=== PATIENT | female | born 1955 | race Two or more races ===

== ENCOUNTER → 2023-05-24 | Day surgery (SDC) | payer BC, MEDICARE ==
[~2023-05-24] MED LIST: LACTATED RINGERS 1,000 ML IV ONE; LACTATED RINGERS 1,000 ML IV SCH; LIDOCAINE 1% (10MG/ML) FOR IV START INTRADERMA PRN; PROPOFOL 10 MG/ML 20 ML VIAL IV ONE
[2023-05-24 08:15] LABS: Glucose,Whole Blood 79 mg/dL (70-110)
[2023-05-24 08:16] VITALS: TEMP 98
--- NOTE | 2023-05-24 09:58 | P.PCN ---
Date of Procedure: 05/24/23 Procedure(s) Performed: BRIEF HISTORY: Patient is a 67-year-old pleasant female scheduled for an elective colonoscopy as a part of screening for colon cancer. PROCEDURE PERFORMED: Colonoscopy with snare polypectomy. PREOPERATIVE DIAGNOSIS: Screening for colon cancer. IV sedation per Anesthesia. PROCEDURE: After informed consent was obtained, the patient, was brought into the endoscopy unit. IV sedation was administered by Anesthesia under continuous monitoring. Digital rectal examination was normal. Initially the Olympus CF-160 flexible video colonoscope was then inserted in the rectum, gradually advanced into the cecum without any difficulty. Careful examination was performed as the scope was gradually being withdrawn. Ileocecal valve and the appendiceal orifice were visualized and appeared normal. Prep was excellent. Mucosa of the cecum, appeared normal. Ascending colon there was a 8 mm flat polyp that was removed by cold snare polypectomy. Rest of the ascending colon, transverse colon, descending colon, sigmoid colon, and rectum appeared normal. Retroflexion was performed in the rectum and no lesions were seen. The patient tolerated the procedure well. IMPRESSION: 8 mm flat ascending colon polyp status post polypectomy Rest of the colon appeared normal RECOMMENDATIONS: Findings of this examination were discussed with the patient as well as her family. She was advised to follow with the biopsy results. If the biopsy results when she can have a repeat colonoscopy in 5 years.
[2023-05-24 10:02] VITALS: BP 138/81; PULSE 66; RESP 14
== END ==
LOC: ORWHC2ENDO 07:26
PROVIDERS: ATTEND Internal Medicine Gastroenterology
DX: Z12.11 Encounter for screening for malignant neoplasm of colon (principal); D12.2 Benign neoplasm of ascending colon; Z91.041 Radiographic dye allergy status
CPT/HCPCS: 88305; 45385; J2704

== ENCOUNTER 2024-01-12 08:41 | Day surgery (SDC) | payer MEDICARE ==
[2024-01-12] MEDS: ALPRAZolam 0.25 MG TAB PO STA (09:39)
[2024-01-12 10:59] VITALS: TEMP 99
[2024-01-12 11:00] VITALS: RESP 18
[2024-01-12 12:21] VITALS: BP 135/76; PULSE 90
--- NOTE | 2024-01-12 12:44 | US ---
EXAMINATION TYPE: US biopsy parotid gland DATE OF EXAM: 01/12/2024 11:19 AM CLINICAL INDICATION:Female, 68 years old with history of R22.1 localized swelling; , thyroid nodule. COMPARISON: CT outside institution [facility] ATTENDING: Dr. Todd Garcia PROCEDURE: Informed consent was obtained. The risks and benefits of the procedure were discussed with the patien t. The site was marked. Timeout procedure was performed Ultrasound imaging of the thyroid demonstrates left parotid gland mass. The patient was prepped, draped in the usual sterile fashion, and locally anesthetized with 1% lidoca ine. 3 20-gauge core needle biopsies were obtained. Samples were sent to the pathology department for further analysis. Patient tolerated the procedure without incident and was sent home in stable cond ition. IMPRESSION: Successful ultrasound guided fine needle aspiration.
== END 2024-01-12 11:50 | disposition home or self-care (01) ==
LOC: RADPROMAIN 08:41
PROVIDERS: ATTEND Otolaryngology
DX: K11.8 Other diseases of salivary glands (principal); E04.1 Nontoxic single thyroid nodule
CPT/HCPCS: 42400; 76942; 88305; 88341; 88342

== ENCOUNTER → 2024-02-26 | Outpatient (CLI) | payer MEDICARE ==
--- NOTE | 2024-02-26 14:05 | PE ---
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 Images are reviewed on the computer in the coronal, axial, and sagittal planes. Reconstructed rotating images are created on independent workstation and reviewed on the computer. A non-contrast CT is performed in conjunction with the PET scan. Glucose level 97 mg/dL CT DLP: 346 mGycm, Automated exposure control for dose reduction was used. COMPARISON: CT None, PET/CT None, ultrasound prior gland. FINDINGS: Mediastinal SUV mean is 1.8. Hepatic parenchyma SUV mean is 2.6. SKULL BASE AND NECK: * Left parotid gland lesion measuring 10 mm Max SUV 3.3 * Right neck lymph node which is enlarged measuring up to 11 mm in short axis max SUV 6.1. [place] rs lymph node more inferiorly max SUV 4.3 CHEST, MEDIASTINUM, AND HILAR REGION: * Mild uptake around the right pulmonary hilum max SUV 2.9. ABDOMEN AND PELVIS: * Left external iliac lymph node measuring 12 mm short axis max SUV 4.1 * Left external iliac lymph node measuring 12 mm in short axis more superiorly max SUV 5.3. * Right inguinal lymph node measuring 9 mm in short axis max SUV 2.8 * Centimeter left common iliac lymph nodes max SUV 2.9 MUSCULOSKELETAL STRUCTURES: * No suspicious radiotracer activity. * Degenerative uptake at the left C3-C4 facet max SUV 4.4. OTHER CT: Mild coronary artery atherosclerosis. Heart is mildly enlarged for size. The gallbladder drew rgically absent. Scattered colonic diverticulosis. Fat-containing umbilical hernia. IMPRESSION: Left parotid lesion along with right neck lymph nodes, and pelvis lymph nodes concerning for lymphoma .
== END | disposition home or self-care (01) ==
LOC: RADPETMAIN 09:26
PROVIDERS: ATTEND Internal Medicine Hematology & Oncology
DX: C88.4 Extranodal marginal zone B-cell lymphoma of mucosa-associated lymphoid tissue [MALT-lymphoma] (principal); K11.8 Other diseases of salivary glands
CPT/HCPCS: 78815; A9552